=== PATIENT | male | born 1975 | race African-American/Black ===

== ENCOUNTER 2016-06-10 01:10 | Emergency (ER) | payer OTHER ==
[~2016-06-10] VITALS: Ht 167.6 cm; Wt 200.2 kg
[~2016-06-10 01:10] MED LIST: ALBUTEROL2.5 MG/3 M IH; BACLOFEN10 MG PO; CYCLOBENZAPRINE10 MG PO; DITROPAN XL10 MG PO; FORTAMET500 M1 PO; GLUCOPHAGE500 MG PO; IBUPROFEN800 MG PO; KEFLEX500 MG PO; Lioresal PO; MOTRIN800 MG PO; OXYBUTYNIN CHLO10 MG PO; PROAIR HFA8.5 GM IH; PROVENTIL,2.5 MG/0.5 IH; Proventil,Ventolin H IH; VENTOLIN HFA18 GM IH; Zithromax PO; prednisone
[2016-06-10] MEDS ORDERED: NORCO 5/3251 TABLET PO (04:06)
[2016-06-10 06:47] VITALS: BP 111/90
== END 2016-06-10 06:48 | disposition home or self-care (01) ==
LOC: EME 01:10
DX: M54.5 Low back pain (principal); S70.01XA Contusion of right hip, initial encounter; W01.198A Fall on same level from slipping, tripping and stumbling with subsequent striking against other object, initial encounter; Y92.009 Unspecified place in unspecified non-institutional (private) residence as the place of occurrence of the external cause; R93.7 Abnormal findings on diagnostic imaging of other parts of musculoskeletal system; G89.29 Other chronic pain; E11.9 Type 2 diabetes mellitus without complications; J44.9 Chronic obstructive pulmonary disease, unspecified; J45.909 Unspecified asthma, uncomplicated; Z87.891 Personal history of nicotine dependence
CPT/HCPCS: 72131; 74176; 99281; 99284; J1170

== ENCOUNTER 2016-07-18 18:46 | Inpatient (IN) | payer OTHER ==
[~2016-07-18] VITALS: Ht 165.1 cm; Wt 345.0 kg
[~2016-07-18 18:46] MED LIST changes: +NORCO 5/3251 TABLET PO
[2016-07-18 19:52] LABS: EOSINOPHIL (%) 1.4 % (0-5); EOSINOPHIL COUNT 0.3 K/uL (0-0.3); HEMATOCRIT 39.2 % (38.0-50.0); IMMATURE GRANULOCYTE (%) 0.4 % (0.0-0.7); LYMPHOCYTE COUNT 1.5 K/uL (1.0-2.8); MCH 28.1 PG (29.0-34.0); MCHC 32.7 G/DL (30.0-36.0); MCV 86.2 FL (86-99); MEAN PLAT.VOLUME 10.4 uM^3 (9.0-12.4); MONOCYTE (%) 3.5 % (3-12); MONOCYTE COUNT 0.8 K/uL (0-0.8); NEUTROPHIL (%) 87.9 % (45-76); NEUTROPHIL COUNT 19.6 K/uL (1.8-6.4); PLATELET COUNT 359 K/uL (156-360); RBC DIS.WIDTH-CV 14.2 % (11.8-14.6); RBC DIS.WIDTH-SD 43.8 % (39-53); RED BLOOD COUNT 4.55 M/uL (4.00-5.50); WHITE BLOOD COUNT 22.3 K/uL (4.1-10.2)
[2016-07-18 20:00] LABS: CHLORIDE 99 mEq/L (99-109); POTASSIUM 4.7 mEq/L (3.7-5.4); SODIUM 134 mEq/L (136-147)
[2016-07-18 20:02] LABS: GLUCOSE 268 mg/dL (70-99)
[2016-07-18 20:03] LABS: ANION GAP 10 MEQ/L (2-14)
[2016-07-18 20:04] LABS: TOTAL BILIRUBIN 0.5 mg/dL (0.0-1.0)
[2016-07-18 20:05] LABS: ALKALINE PHOSPHATASE 100 IU/L (3-129)
[2016-07-18 20:06] LABS: GFR ESTIMATE (CALCULATED) > 59 mL/min/
[2016-07-18 20:07] LABS: UREA NITROGEN (BUN) 15 mg/dL (9-23)
[2016-07-18 20:09] LABS: LIPASE 58 U/L (1.0-51.0)
[2016-07-18 20:39] LABS: ADD MIUA? YES; BILIRUBIN NEGATIVE; BLOOD NEGATIVE; COLOR YELLOW ((YELLOW)); GLUCOSE (STRIP) NEGATIVE; KETONES 5; LEUKOCYTES MODERATE; NITRITE POSITIVE; PROTEIN (STRIP) NEGATIVE; UROBILINOGEN 0.2 MG/DL (0.2-1.0)
[2016-07-18 21:01] LABS: AMORPHOUS URATES CRYSTALS 2+; BACTERIA 3+ /HPF; CASTS NONE SEEN /LPF; CRYSTALS PRESENT; EPITHELIAL CELLS NONE SEEN /HPF; MUCUS NONE SEEN /LPF; RED BLOOD CELLS RARE /HPF (0-5); UCUL ADDED? YES; WHITE BLOOD CELLS 15-20 /HPF (0-5)
[2016-07-18] MEDS ORDERED: VITAMIN D31000 UNIT PO (21:42)
[2016-07-18] MEDS ORDERED: DUONEB 2.5-0.5 M3 ML AEROSOL (21:43)
[2016-07-18] MEDS ORDERED: SILVADENE20 GM TP (21:43)
[2016-07-18] MEDS ORDERED: ADVAIR 250/501 DISK IH (21:44)
[2016-07-18] MEDS ORDERED: LANTUS 3 M100 UNITS1 SC (21:44)
[2016-07-18 21:46] LABS: INFLUENZA A VIRAL ANTIGEN NEGATIVE; INFLUENZA B VIRAL ANTIGEN NEGATIVE
[2016-07-19 01:11] VITALS: BP 118/56
[2016-07-19 05:53] LABS: POINT-OF-CARE METER ID UU13113725
[2016-07-19 06:39] LABS: HEMATOCRIT 35.8 % (38.0-50.0); MCH 27.3 PG (29.0-34.0); MCHC 31.3 G/DL (30.0-36.0); MCV 87.3 FL (86-99); MEAN PLAT.VOLUME 10.5 uM^3 (9.0-12.4); PLATELET COUNT 366 K/uL (156-360); RBC DIS.WIDTH-CV 14.4 % (11.8-14.6); RBC DIS.WIDTH-SD 45.9 % (39-53); WHITE BLOOD COUNT 24.9 K/uL (4.1-10.2)
[2016-07-19 07:12] LABS: ANION GAP 9 MEQ/L (2-14); CHLORIDE 101 MEQ/L (99-109); GFR ESTIMATE (CALCULATED) > 59 mL/min/; GLUCOSE 235 mg/dL (70-99); POTASSIUM 4.4 MEQ/L (3.7-5.4); SAMPLE HEMOLYSIS CHECK 0; SAMPLE ICTERIC CHECK 0; SAMPLE LIPEMIA CHECK 0; SODIUM 135 MEQ/L (136-147); UREA NITROGEN (BUN) 18 mg/dL (9-23)
[2016-07-19 07:23] LABS: EOSINOPHIL (%) 1.3 % (0-5); EOSINOPHIL COUNT 0.3 K/uL (0-0.3); IMMATURE GRANULOCYTE (%) 0.4 % (0.0-0.7); IMMATURE GRANULOCYTE COUNT 0.1 K/uL; LYMPHOCYTE COUNT 2.2 K/uL (1.0-2.8); MONOCYTE (%) 6.2 % (3-12); MONOCYTE COUNT 1.5 K/uL (0-0.8); NEUTROPHIL (%) 83.1 % (45-76); NEUTROPHIL COUNT 20.7 K/uL (1.8-6.4)
[2016-07-19 07:54] VITALS: BP 118/65
[2016-07-19 17:03] VITALS: BP 129/67
[2016-07-19 19:22] VITALS: BP 128/69
[2016-07-19 20:50] LABS: POINT-OF-CARE METER ID UU13113725
[2016-07-20] VITALS (7 sets, daily range): BP systolic 105–149; BP diastolic 56–72
[2016-07-20 04:06] LABS: POINT-OF-CARE METER ID UU13113725
[2016-07-20 06:25] LABS: EOSINOPHIL (%) 2.7 % (0-5); EOSINOPHIL COUNT 0.3 K/uL (0-0.3); HEMATOCRIT 35.4 % (38.0-50.0); IMMATURE GRANULOCYTE (%) 0.3 % (0.0-0.7); LYMPHOCYTE COUNT 1.2 K/uL (1.0-2.8); MCH 27.3 PG (29.0-34.0); MCHC 31.4 G/DL (30.0-36.0); MCV 87.2 FL (86-99); MEAN PLAT.VOLUME 10.1 uM^3 (9.0-12.4); MONOCYTE (%) 8.9 % (3-12); MONOCYTE COUNT 1.1 K/uL (0-0.8); NEUTROPHIL COUNT 9.3 K/uL (1.8-6.4); PLATELET COUNT 300 K/uL (156-360); RBC DIS.WIDTH-CV 14.4 % (11.8-14.6); RBC DIS.WIDTH-SD 45.5 % (39-53); RED BLOOD COUNT 4.06 M/uL (4.00-5.50)
[2016-07-20 06:31] LABS: ANION GAP 8 MEQ/L (2-14); CHLORIDE 104 MEQ/L (99-109); GFR ESTIMATE (CALCULATED) > 59 mL/min/; POTASSIUM 4.2 MEQ/L (3.7-5.4); SAMPLE HEMOLYSIS CHECK 0; SAMPLE ICTERIC CHECK 0; SAMPLE LIPEMIA CHECK 0; SODIUM 136 MEQ/L (136-147); UREA NITROGEN (BUN) 11 mg/dL (9-23)
[2016-07-20 06:32] LABS: GLUCOSE 119 mg/dL (70-99)
[2016-07-20 11:27] LABS: POINT-OF-CARE METER ID UU13113725
[2016-07-20 21:03] LABS: POINT-OF-CARE METER ID UU13113725
[2016-07-21 07:07] LABS: EOSINOPHIL (%) 6.1 % (0-5); EOSINOPHIL COUNT 0.6 K/uL (0-0.3); HEMATOCRIT 32.7 % (38.0-50.0); IMMATURE GRANULOCYTE (%) 0.9 % (0.0-0.7); IMMATURE GRANULOCYTE COUNT 0.1 K/uL; LYMPHOCYTE COUNT 1.5 K/uL (1.0-2.8); MCH 28.9 PG (29.0-34.0); MCV 87.4 FL (86-99); MEAN PLAT.VOLUME 10.3 uM^3 (9.0-12.4); MONOCYTE (%) 14.7 % (3-12); MONOCYTE COUNT 1.4 K/uL (0-0.8); NEUTROPHIL (%) 62.4 % (45-76); NEUTROPHIL COUNT 5.9 K/uL (1.8-6.4); PLATELET COUNT 309 K/uL (156-360); RBC DIS.WIDTH-CV 14.5 % (11.8-14.6); RBC DIS.WIDTH-SD 46.4 % (39-53); RED BLOOD COUNT 3.74 M/uL (4.00-5.50); WHITE BLOOD COUNT 9.4 K/uL (4.1-10.2)
[2016-07-21 07:09] VITALS: BP 132/60
[2016-07-21 07:38] LABS: ANION GAP 11 MEQ/L (2-14); CHLORIDE 103 MEQ/L (99-109); GFR ESTIMATE (CALCULATED) > 59 mL/min/; GLUCOSE 169 mg/dL (70-99); POTASSIUM 4.1 MEQ/L (3.7-5.4); SAMPLE HEMOLYSIS CHECK 0; SAMPLE ICTERIC CHECK 0; SAMPLE LIPEMIA CHECK 0; SODIUM 138 MEQ/L (136-147); UREA NITROGEN (BUN) 10 mg/dL (9-23)
[2016-07-21 11:04] LABS: POINT-OF-CARE METER ID UU13113725
[2016-07-21 15:37] VITALS: BP 131/73
[2016-07-21 16:15] LABS: POINT-OF-CARE METER ID UU13113725
[2016-07-21 21:48] LABS: POINT-OF-CARE METER ID UU13113725
[2016-07-22 00:08] VITALS: BP 143/77
[2016-07-22 07:21] VITALS: BP 99/51
[2016-07-22 15:41] VITALS: BP 127/72
[2016-07-22 20:48] LABS: POINT-OF-CARE METER ID UU13113725
[2016-07-22 22:59] VITALS: BP 134/80
[2016-07-23 05:33] LABS: POINT-OF-CARE METER ID UU13113725; POINT-OF-CARE USER ID 611181321
[2016-07-23 06:44] LABS: ANION GAP 8 MEQ/L (2-14); CHLORIDE 104 MEQ/L (99-109); POTASSIUM 4.4 MEQ/L (3.7-5.4); SAMPLE HEMOLYSIS CHECK 0; SAMPLE ICTERIC CHECK 0; SAMPLE LIPEMIA CHECK 0; SODIUM 139 MEQ/L (136-147)
[2016-07-23 06:59] LABS: GFR ESTIMATE (CALCULATED) > 59 mL/min/; UREA NITROGEN (BUN) 9 mg/dL (9-23)
[2016-07-23 07:03] LABS: GLUCOSE 111 mg/dL (70-99)
[2016-07-23 07:15] LABS: HEMATOCRIT 41.8 % (38.0-50.0); MCH 27.3 PG (29.0-34.0); MCHC 31.1 G/DL (30.0-36.0); MCV 87.8 FL (86-99); MEAN PLAT.VOLUME 10.7 uM^3 (9.0-12.4); NRBC (%) 0.3 /100 WBC (0-0); PLATELET COUNT 265 K/uL (156-360); RBC DIS.WIDTH-CV 14.5 % (11.8-14.6); RBC DIS.WIDTH-SD 46.7 % (39-53); WHITE BLOOD COUNT 7.7 K/uL (4.1-10.2)
[2016-07-23 07:23] LABS: RED BLOOD COUNT 4.76 M/uL (4.00-5.50)
[2016-07-23 08:01] VITALS: BP 130/74
[2016-07-23 10:03] LABS: EOSINOPHIL COUNT 0.5 K/uL (0-0.3); IMMATURE GRANULOCYTE (%) 2.2 % (0.0-0.7); IMMATURE GRANULOCYTE COUNT 0.2 K/uL; INSTRUMENT ABS NEUTROPHIL CT 3.9 K/uL; LYMPHOCYTE COUNT 1.9 K/uL (1.0-2.8); MONOCYTE COUNT 1.2 K/uL (0-0.8); NEUTROPHIL COUNT 3.9 K/uL (1.8-6.4)
[2016-07-23 15:45] LABS: POINT-OF-CARE METER ID UU13113725
[2016-07-23 15:55] VITALS: BP 136/76
[2016-07-23 22:56] VITALS: BP 127/73
[2016-07-24 06:00] LABS: POINT-OF-CARE METER ID UU13113725
[2016-07-24 07:32] VITALS: BP 118/73
[2016-07-24 15:31] VITALS: BP 125/78
[2016-07-24 23:41] VITALS: BP 146/96
[2016-07-25 07:53] VITALS: BP 135/76
[2016-07-25 11:04] LABS: POINT-OF-CARE METER ID UU13113725
[2016-07-25] MEDS ORDERED: ENDOCET 5-3251 EACH PO (14:43)
[2016-07-25] MEDS ORDERED: TYLENOL REGULA325 MG PO (14:43)
[2016-07-25] MEDS ORDERED: ZINC OXIDE56.7 GM TP (14:44)
[2016-07-25] MEDS ORDERED: KEFLEX500 MG PO (14:48)
[2016-07-25 15:49] VITALS: BP 130/77
== END 2016-07-25 17:44 | DRG 872 ==
LOC: EME 18:46 → EDOF 22:49 → 5EAST 22:49
PROVIDERS: Emergency Medicine; Family Medicine Sports Medicine
DX: A41.9 Sepsis, unspecified organism (principal); N39.0 Urinary tract infection, site not specified; E11.628 Type 2 diabetes mellitus with other skin complications; L03.116 Cellulitis of left lower limb; L03.115 Cellulitis of right lower limb; E66.01 Morbid (severe) obesity due to excess calories; Z68.45 Body mass index [BMI] 70 or greater, adult; L98.411 Non-pressure chronic ulcer of buttock limited to breakdown of skin; B37.2 Candidiasis of skin and nail; S34.109D Unspecified injury to unspecified level of lumbar spinal cord, subsequent encounter; Q06.8 Other specified congenital malformations of spinal cord; I89.0 Lymphedema, not elsewhere classified; J45.909 Unspecified asthma, uncomplicated; J44.9 Chronic obstructive pulmonary disease, unspecified; R32 Unspecified urinary incontinence; R15.9 Full incontinence of feces; G89.29 Other chronic pain; M54.5 Low back pain; E78.5 Hyperlipidemia, unspecified; F12.10 Cannabis abuse, uncomplicated; F17.210 Nicotine dependence, cigarettes, uncomplicated; Z22.321 Carrier or suspected carrier of Methicillin susceptible Staphylococcus aureus; Z22.8 Carrier of other infectious diseases
CPT/HCPCS: 71010; 80048; 80053; 81003; 82948; 83605; 83690; 85025; 87040; 87070; 87075; 87076; 87077; 87086; 87106; 87147; 87185; 87186; 87205; 87502; 93970; 94640; 94640 76; 94799; 97530 GP; 99202; 99281; 99285; J0696; J1815; J2543; J3370; J7030; J7050